=== PATIENT | male | born 1945 | race Caucasian/White ===

== ENCOUNTER → 2018-03-21 | Outpatient (CLI) | payer OTHER | END | disposition home or self-care (01) | LOC: ROC 01-26 09:48 | PROVIDERS: ATTEND Radiology Radiation Oncology | DX: C71.9 Malignant neoplasm of brain, unspecified (principal) | CPT/HCPCS: 99215; G0463 ==

== ENCOUNTER → 2018-03-27 | Outpatient (CLI) | payer OTHER ==
[~2018-03-27] MED LIST: GADOBUTROL 10 MMOL/10 ML PFS ONE
== END | disposition home or self-care (01) ==
LOC: CFH 11:48
PROVIDERS: ATTEND Radiology Radiation Oncology
DX: G93.89 Other specified disorders of brain (principal); J34.1 Cyst and mucocele of nose and nasal sinus; C71.9 Malignant neoplasm of brain, unspecified
CPT/HCPCS: 70553; A9585